=== PATIENT | female | born 1935 | race Caucasian/White ===

== ENCOUNTER 2018-12-20 13:03 | Outpatient (CLI) | payer OTHER, MEDICARE ==
--- NOTE | 2018-12-20 14:24 | Vascular Lab Report ---
DUPLEX DOPPLER LOWER EXTREMITY VEINS, BILATERAL INDICATION: R22.43 LOCALIZED SWELLING MASS LUMP. Bilateral lower extremity pain with shortness of breath for 3 weeks TECHNIQUE: Duplex doppler imaging was performed through the veins of both lower extremities using ve nous compression and other maneuvers. COMPARISON: No relevant prior imaging study available. FINDINGS: Right Common femoral vein: Negative. Right Superficial femoral vein: Negative. Right Popliteal vein: Negative. Right Calf veins: Negative. Left Common femoral vein: Negative. Left Superficial femoral vein: Negative. Left Popliteal vein: Negative. Left Calf veins: Negative. Additional findings: None.. IMPRESSION: No sonographic evidence for DVT in either lower extremity. Signer Name: Jose Eduardo Wolff Jr, MD Signed: 12/20/2018 2:20 PM Workstation Name: [id number]
== END 2018-12-20 13:04 | disposition home or self-care (01) ==
LOC: VAS 13:03
PROVIDERS: ATTEND Internal Medicine
DX: R22.43 Localized swelling, mass and lump, lower limb, bilateral (principal); M79.604 Pain in right leg; M79.605 Pain in left leg; K21.9 Gastro-esophageal reflux disease without esophagitis; I10 Essential (primary) hypertension; E11.9 Type 2 diabetes mellitus without complications; E78.00 Pure hypercholesterolemia, unspecified; M19.90 Unspecified osteoarthritis, unspecified site; Z87.891 Personal history of nicotine dependence
CPT/HCPCS: 93970